=== PATIENT | female | born 1955 | race Caucasian/White ===

== ENCOUNTER → 2022-12-20 08:45 | Outpatient (BNVA) | payer MEDICARE, OTHER, SELFPAY | PROVIDERS: PCP Nurse Practitioner; Referring Provider Internal Medicine Hematology & Oncology; Visit Provider Psychiatry & Neurology Neurology | DX: G62.9 Polyneuropathy, unspecified; I49.8 Other specified cardiac arrhythmias; E55.9 Vitamin D deficiency, unspecified; C18.9 Malignant neoplasm of colon, unspecified; C79.9 Secondary malignant neoplasm of unspecified site; Z92.21 Personal history of antineoplastic chemotherapy | CPT/HCPCS: 93005; 99203 ==